=== PATIENT | male | born 2000 | race Caucasian/White ===

== ENCOUNTER 2020-11-15 20:58 | Emergency (ER) | payer OTHER ==
[~2020-11-15] VITALS: Ht 182.9 cm; Wt 89.8 kg
[2020-11-16 00:59] VITALS: BP 133/50
== END 2020-11-16 01:16 | disposition home or self-care (01) ==
LOC: EDBD 20:58 → ER 21:02
DX: S72.401A Unspecified fracture of lower end of right femur, initial encounter for closed fracture (principal); S52.614A Nondisplaced fracture of right ulna styloid process, initial encounter for closed fracture; S02.2XXA Fracture of nasal bones, initial encounter for closed fracture; X58.XXXA Exposure to other specified factors, initial encounter; Y93.89 Activity, other specified; Y92.89 Other specified places as the place of occurrence of the external cause; Y99.8 Other external cause status
CPT/HCPCS: 29125; 70450; 70486; 71250; 72125; 73100; 74176